=== PATIENT | male | born 1965 | race Caucasian/White ===

== ENCOUNTER → 2023-08-28 06:45 | Outpatient (REF) | payer OTHER, SELFPAY | LOC: HWCARD 06:45 | PROVIDERS: ATTENDING PHYSICIAN Orthopaedic Surgery; FAMILY PHYSICIAN Family Medicine | DX: Z01.818 Encounter for other preprocedural examination (principal) | CPT/HCPCS: 93005 ==

== ENCOUNTER → 2023-11-17 08:22 | Outpatient (REF) | payer OTHER, SELFPAY | LOC: MRI 3T 08:22 | PROVIDERS: ATTENDING PHYSICIAN Specialist; FAMILY PHYSICIAN Family Medicine | DX: R97.20 Elevated prostate specific antigen [PSA] (principal) | CPT/HCPCS: 72197; A9575 ==

== ENCOUNTER 2025-03-23 17:10 | Emergency (ER) | payer OTHER, SELFPAY ==
[2025-03-23 17:26] VITALS: BP 147/105
[2025-03-23 17:53] LABS: Hematocrit 40.7 % (39.0-52.0); Hemoglobin 13.9 g/dL (13.0-18.0); Mean Corp Hgb Conc. 34.2 g/dL (33.0-37.0); Mean Corpuscular Volume 80.4 fL (80.0-94.0); Nucleated Red Blood Cells % 0 % (-); Platelet Count 259 10^3/uL (130-400); Red Cell Dist. Width 13.2 % (11.5-14.5)
[2025-03-23 18:06] LABS: INR 0.99; PT 12.9 Sec (11.4-14.6)
[2025-03-23 18:07] LABS: ALT (SGPT) 24 U/L (0-50); AST (SGOT) 24 U/L (17-59); Albumin 4.2 g/dl (3.5-5.0); Alkaline Phosphatase 58 U/L (38-126); Blood Urea Nitrogen 16 mg/dl (9-20); Calcium 9.1 mg/dl (8.4-10.2); Carbon Dioxide 25 mmol/L (22-30); Chloride 105 mmol/L (98-107); Glucose 87 mg/dl (70-99); Potassium 4.1 mmol/L (3.5-5.1); Sodium 136 mmol/L (135-145); Total Protein 6.6 g/dl (6.3-8.2); eGFR > 60.00
[2025-03-23 18:17] LABS: Troponin I 0.018 ng/ml
--- NOTE | 2025-03-23 18:51 | ED.GENMED ---
History of Present Illness
General
Chief Complaint: Cardiac Symptoms
Time Seen by Provider: 03/23/25 17:48
History of Present Illness
History of Present Illness:
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 The patient is a poor historian and unable to provide much detail of his medical history but states that he feels fine and has no
complaints. His spouse is noted that he seems occasionally more short of breath. He specifically denies any exertional chest pain or shortness of breath. Does have known sleep apnea but is noncompliant with CPAP.
Past History
Past History
ED Past Medical History: None
ED Past Surgical History: None
Social History
Tobacco: Non-smoker
Alcohol: Occasional
Personal:
Review of Systems
Review of Systems
Allergies reviewed?: Yes
All Other Systems: ROS reviewed and negative except as documented in HPI and ROS
Phy Exam
Physical Exam
Physical Exam:
GEN: Well appearing, NAD, WDWN
HEENT: Oral mucosa moist, no scleral icterus
Cardiac: Regular rate however irregular, no murmur
Lung: No respiratory distress, no tachypnea, lungs clear to auscultation
MSK: No gross deformity or injuries, no lower extremity edema
Skin: Good color, no pallor or jaundice, no rashes
Neuro: AO x3, moves all extremities freely
Psych: Calm, cooperative
Course
Orders/Labs/Results
Orders:
Orders
03/23/25 17:11
EKG [Electrocardiogram (*1)] Urgent
Reason for Study: Shortness of Breath
03/23/25 17:12
EKG- Treatment ONCE
03/23/25 17:29
CXR2 [CR Chest - 2 Views ] Urgent
Comment:
Reason For Exam: new onset afib
03/23/25 17:35
Complete Blood Count/With Diff Urgent
Comprehensive Metabolic Panel Urgent
NT-proBNP Urgent
Comment: ADD ON
PT/INR [Prothrombin Time] Urgent
Troponin I Urgent
03/23/25 18:01
Add On- LAB Urgent
Tests Added?: BNP
Metoprolol Xl [Toprol Xl] 25 mg PO NOW STA
Metoprolol [Lopressor] 5 mg IV NOW STA
03/23/25 18:51
Apixaban [Eliquis] 5 mg PO NOW STA
Abnormal Lab Results
03/23/25
17:35
MPV 10.9 H fL
(7.4-10.4)
Absolute Monos (auto) 0.8 H 10^3/uL
(0.1-0.6)
03/23/25 17:35
03/23/25 17:35
Vital Signs
Initial and Last Documented VS:
Initial Vital Signs
Temp Pulse Resp BP Pulse Ox
98.0 F 95 16 147/105 95
03/23/25 17:26 03/23/25 17:26 03/23/25 17:26 03/23/25 17:26 03/23/25 17:26
Last Documented Vital Signs
Temp Pulse Resp BP Pulse Ox
98.0 F 88 18 146/111 98
03/23/25 17:26 03/23/25 18:59 03/23/25 18:59 03/23/25 18:59 03/23/25 18:59
MDM/Problems Addressed
MDM/Problems Addressed:
Patient's labs are unremarkable and clinical exam/chest x-ray shows no evidence for acute CHF. His heart rates are stable, he will be started on oral metoprolol and Eliquis, he has previously scheduled a public housing manager appointment due to 'irregular
heartbeat' that was diagnosed 1 week ago at his primary care doctor, this is scheduled for May. Recommend he see his primary care physician in the interim to get medication refills. Given uncertain timeline of symptom onset he is not a
candidate for cardioversion
Comment
Comment:
EKG independently interpreted by me reveals a controlled rate A-fib with no ST changes
*Pulse Oximetry
SaO2: 95
Oxygen Mode of Delivery: Room air
Patient hypoxic: no
*Critical Care Note
Total Time (30-74mins, 75-104mins- exclusive of procedures): Not Applicable
ED Attending Note
-
Portions of this chart may have been created with voice recognition software.� Occasional wrong word or��sound alike� substitutions may have occurred due to the inherent limitations of voice recognition software.
Discharge Plan
Departure
Patient Disposition: Home (Routine Discharge)
Date of Disposition: 03/23/25
Time of Disposition: 18:51
Patient with high blood pressure during this ER visit?: Yes
Discharge Problem:
New onset a-fib
Instructions: How to take anticoagulants safely, Atrial fibrillation (DC)
Prescriptions:
New
Eliquis 5 mg tablet
5 mg PO BID Qty: 60 0RF
metoprolol succinate 25 mg tablet extended release 24 hr
25 mg PO DAILY Qty: 30 0RF
No Action
oxycodone-acetaminophen 5 MG/325 MG tablet
1 tab PO .Q4-6HPRN PRN (Reason: pain) Qty: 20 0RF
doxycycline hyclate 100 MG capsule
100 mg PO Q12 Qty: 28 0RF
oxycodone-acetaminophen 5 MG/325 MG tablet
1 tab PO Q6HPRN PRN (Reason: severe pain) Qty: 8 0RF
Referrals:
Leonel Gramajo DO [Family Provider, Family Practice]
Activity Restrictions/Additional Instructions:
Follow-up with your primary care physician within the next month for medication refills if you are not able to see the public housing manager within the next 30 days
Interventions
Interventions:
*General Assessment Last Done: 03/23/25 17:26
*Neglect/Abuse Screening Last Done: 03/23/25 17:26
*ED COVID-19 Vaccine History Last Done: 03/23/25 17:26
*ED Influenza Vaccine History Last Done: 03/23/25 17:26
[facility] Fall Risk Assessment Tool Last Done: 03/23/25 18:53
*Risk Screen - Suicide (C-SSRS) Last Done: 03/23/25 17:26
*Nursing Disposition Last Done: 03/23/25 19:12
ED- Cardiac Assessment Last Done: 03/23/25 18:53
ED- Pulmonary Assessment Last Done: 03/23/25 18:53
Discharge Date and Time
Discharge Date/Time: 03/23/25 19:15
Print Language: TURKISH
[2025-03-23 18:53] VITALS: BP 134/100
[2025-03-23] MEDS: TOPROL XL 25 MG PO (18:58)
[2025-03-23] MEDS: ELIQUIS 5 MG PO (18:58)
[2025-03-23 18:59] VITALS: BP 146/111
== END 2025-03-23 19:15 | disposition home or self-care (01) ==
LOC: EMR 17:10
PROVIDERS: EMERGENCY PHYSICIAN Emergency Medicine; FAMILY PHYSICIAN Family Medicine
DX: I48.91 Unspecified atrial fibrillation (principal); G47.30 Sleep apnea, unspecified; Z91.199 Patient's noncompliance with other medical treatment and regimen due to unspecified reason
CPT/HCPCS: 99285; 71046; 80053; 83880; 84484; 85025; 85610; 93005